=== PATIENT | female | born 1970 | race Hispanic/Latino ===

== ENCOUNTER 2022-04-02 14:03 | Day surgery (SDC) | payer BC, OTHER ==
[~2022-04-02] VITALS: Ht 158.8 cm; Wt 75.3 kg
[~2022-04-02 14:03] MED LIST: AUGMENTIN 500-1 EACH PO; AUGMENTIN125 MG/51 PO; CARAFATE1 GM PO; DICLOFENAC SODI75 MG PO; FENTANYL CITRATE/PF 100MCG/2 ML INJ ONE; FLAGYL375 MG PO; FOLIC ACID0.4 MG PO; GLUCAGON FOR INJ 1 MG VIAL ONE; HUMIRA(CF)40 MG/0.1 IJ; HYDROCODON-ACE1 EAC9 PO; HYOMAX PO; HYOSCYAMINE SULFATE 0.5 MG/ML INJ ONE; HYOSCYAMINE0.375 MG PO; IMITREX50 MG PO; METHOTREXATE2.5 MG PO; METOCLOPRAMIDE HCL 10 MG/2ML VIAL ONE; MIDAZOLAM HCL 2 MG/2 ML VIAL ONE; MULTIVITAMINS1 EAC8 PO; OMEPRAZOLE MAGN20 MG PO; POVIDONE IODINE 0.05% 0.05 % ML PO ONE; PRILOSEC OTC20 MG PO; PROPOFOL IV EMULSION 10 MG/ML 20 ML VIAL ONE; RAYOS1 MG PO; Z.0.BENTYL20 MG; Z.0.KLONOPIN1 MG PO; Z.0.NEXIUM40 MG PO; Z.0.XYZAL5 MG; ZOLOFT50 MG PO; [UNRECOGNIZED DRUG - OTHER]
[2022-04-02] MEDS ORDERED: SODIUM CHLORIDE 0.9% 1000ML 1,000 ML IV STA (15:41)
[2022-04-02 16:10] LABS: BASOPHILS % 0.2 % (0.0-1.0); EOSINOPHILS % 0.2 % (0.0-6.0); HEMATOCRIT 43.4 % (34.2-44.1); LYMPHOCYTES # (AUTO) 3.4 (1.0-3.2); LYMPHOCYTES % 30.8 % (18.0-39.1); MEAN CORPUSCULAR HEMOGLOBIN 30.7 pg (28-32); MEAN CORPUSCULAR HGB CONC 32.3 g/dL (31-35); MEAN CORPUSCULAR VOLUME 95.2 fL (81-99); MONOCYTES # (AUTO) 0.6 (0.2-0.8); MONOCYTES % 5.7 % (4.4-11.3); NEUTROPHILS % 62.7 % (38.7-80.0); PLATELET COUNT 439 x10e3/uL (140-360); RED BLOOD COUNT 4.56 x10e6/uL (3.6-5.1); RED CELL DISTRIBUTION WIDTH 14.3 % (11.7-14.4)
[2022-04-02 16:32] LABS: ALANINE AMINOTRANSFERASE 33 IU/L (0-55); ALBUMIN 4.7 g/dL (3.5-5.0); ALBUMIN/GLOBULIN RATIO 1.1 (0.8-2.0); ALKALINE PHOSPHATASE 67 IU/L (40-150); ANION GAP 19.9 mmol/L (8-16); BLOOD UREA NITROGEN 8 mg/dL (7-26); BUN/CREATININE RATIO 10 (6-25); CALCIUM 10.1 mg/dL (8.4-10.2); CARBON DIOXIDE 23 mmol/L (22-29); CHLORIDE 103 mmol/L (98-107); CREATININE, SERUM 0.77 mg/dL (0.57-1.11); GLUCOSE 84 mg/dL (74-118); POTASSIUM 3.9 mmol/L (3.5-5.1); SODIUM 142 mmol/L (136-145)
[2022-04-02] MEDS ORDERED: PROPOFOL IV EMULSION 10 MG/ML 20 ML VIAL ONE (18:33)
[2022-04-02 19:25] VITALS: BP 102/70
[2022-04-02 19:42] LABS: WBC,FECAL (FECAL LACTOFERRIN) NEGATIVE (NEGATIVE)
== END 2022-04-02 17:38 | disposition home or self-care (01) ==
LOC: OR 15:33 → ER 15:33 → OR 17:38
PROVIDERS: ATTEND Emergency Medicine
DX: K29.70 Gastritis, unspecified, without bleeding (principal); K63.5 Polyp of colon; K52.9 Noninfective gastroenteritis and colitis, unspecified; K20.90 Esophagitis, unspecified without bleeding; K31.A0 Gastric intestinal metaplasia, unspecified; K62.89 Other specified diseases of anus and rectum; K21.9 Gastro-esophageal reflux disease without esophagitis; K64.8 Other hemorrhoids; Z71.3 Dietary counseling and surveillance; E86.0 Dehydration; E78.5 Hyperlipidemia, unspecified; E11.9 Type 2 diabetes mellitus without complications; M35.00 Sjogren syndrome, unspecified; M81.0 Age-related osteoporosis without current pathological fracture; M06.9 Rheumatoid arthritis, unspecified; M41.9 Scoliosis, unspecified; F41.9 Anxiety disorder, unspecified; F32.A Depression, unspecified; Z88.1 Allergy status to other antibiotic agents; Z88.2 Allergy status to sulfonamides; Z20.822 Contact with and (suspected) exposure to COVID-19; Z79.899 Other long term (current) drug therapy; Z68.25 Body mass index [BMI] 25.0-25.9, adult; Z80.0 Family history of malignant neoplasm of digestive organs
CPT/HCPCS: 0223U; 36415; 43239; 45380; 80053; 83630; 83735; 83993; 84702; 85025; 87045; 87177; 87324; 87328; 87449; 99284; J1610; J1980; J2250; J2704; J2765; J3010; J7030; 45378; 87493